=== PATIENT | male | born 1965 | race Caucasian/White ===

== ENCOUNTER → 2024-09-17 07:36 | Outpatient (REF) | payer OTHER, SELFPAY | LOC: MRI 3T 07:36 | PROVIDERS: ATTENDING PHYSICIAN Urology; FAMILY PHYSICIAN Physician Assistant Medical | DX: C61 Malignant neoplasm of prostate (principal) | CPT/HCPCS: 72197; A9575 ==

== ENCOUNTER 2025-05-27 08:08 | Emergency (ER) | payer OTHER, SELFPAY ==
[2025-05-27 08:12] VITALS: BP 130/77
--- NOTE | 2025-05-27 08:46 | EDRN ---
Remy HAN in room w/ pt.
--- NOTE | 2025-05-27 08:47 | ED.GENMED ---
History of Present Illness
General
Chief Complaint: Musculo-Skeletal Complaint
Source: patient
Exam Limitations: none
Time Seen by Provider: 05/27/25 08:35
History of Present Illness
History of Present Illness:
60yoM with a history of hypertension and seizures presenting for evaluation of right foot pain. Patient started to experience a twinge on the top of his right foot yesterday. He was having significant burning pain throughout the night and was
having difficulty sleeping. Pain is worse with weightbearing. He denies any specific injury. 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 He is worried he may have a stress fracture. He took ibuprofen 600mg this morning
with some relief. He denies any paresthesias or calf pain.
Past History
Past History
ED Past Medical History: Other (RA, Gout)
ED Past Surgical History: None
Social History
Tobacco: Non-smoker
Phy Exam
General Physical Exam
General Presentation: well appearing and no apparent distress
General Skin: warm and dry
General Habitus: normal
General Mental: alert
ENT Exam
ENT Exam: normocephalic
Neurological Exam
Neurological Exam: alert
Tomas Coma Scale
Eye Opening: Spontaneous
Verbal Response: Oriented
Motor Response: Obeys Commands
GCS Total Score: 15
Musculoskeletal Exam
Musculoskeletal Exam: other (R foot: Mild swelling noted to dorsum of foot. No wounds or signs of infection. +Tenderness to ball of foot. ROM of ankle and toes intact. No calf tenderness or pitting edema. 2+ DP pulse and sensation intact.)
Skin Exam
Skin Exam: normal color and warm/dry
Psychiatric Exam
Psychiatric Exam: normal mood/affect
Course
Orders/Labs/Results
Orders:
Orders
05/27/25 08:15
Foot, Right 3 View [CR Foot - Right Min 3 Views] Urgent
Comment:
Reason For Exam: pain
05/27/25 08:47
boot [Ortho Boot Right- Treatment] ONCE
Short or tall?: Short
Vital Signs
Initial and Last Documented VS:
Initial Vital Signs
Temp Pulse Resp BP Pulse Ox
98.1 F 78 18 130/77 98
05/27/25 08:12 05/27/25 08:12 05/27/25 08:12 05/27/25 08:12 05/27/25 08:12
Last Documented Vital Signs
Temp Pulse Resp BP Pulse Ox
98.1 F 82 16 128/86 98
05/27/25 08:12 05/27/25 08:51 05/27/25 08:51 05/27/25 08:51 05/27/25 08:51
MDM/Problems Addressed
Differential Diagnosis Includes:
60yoM here with R foot pain since last night. No specific trauma but walks a lot for his job. Mild swelling to foot noted with tenderness. DP pulse is 2+ and extremity is neurovascularly intact. Differential diagnosis includes: stress fracture,
metatarsalgia, Colvin's neuroma, no clinical evidence of infection or DVT
X-rays of foot obtained which are negative for acute osseous abnormalities. Discussed that stress fractures can have negative initial x-rays. Walking boot provided and supportive care discussed. Advised f/u with podiatry. He was discharged in stable
condition.
*Pulse Oximetry
SaO2: 98
Oxygen Mode of Delivery: Room air
Patient hypoxic: no (98%)
*Critical Care Note
Total Time (30-74mins, 75-104mins- exclusive of procedures): Not Applicable
ED Attending Note
-
Portions of this chart may have been created with voice recognition software.� Occasional wrong word or��sound alike� substitutions may have occurred due to the inherent limitations of voice recognition software.
Discharge Plan
Departure
Patient Disposition: Home (Routine Discharge)
Date of Disposition: 05/27/25
Time of Disposition: 08:49
Patient with high blood pressure during this ER visit?: No
Discharge Problem:
Acute pain of right foot
Instructions: Muscle, joint, and bone pain - Discharge instructions
Prescriptions:
No Action
colchicine 0.6 MG tablet
0.6 mg PO Daily Qty: 6 0RF
Rx Instructions:
Take 2 tablets now, then take a third tablet one hour later. Repeat in 3 days if necessary.
Referrals:
Debbie Ji DPM [[facility], Podiatry]
Activity Restrictions/Additional Instructions:
Apply ice to affected area and compress. Take ibuprofen as needed for pain. Use boot while walking.
Please follow-up with podiatry.
Interventions
Interventions:
*Risk Screen - Suicide Last Done: 05/27/25 08:50
*General Assessment Last Done: 05/27/25 08:49
*Neglect/Abuse Screening Last Done: 05/27/25 08:50
*ED- Fall Risk Assessment Last Done: 05/27/25 08:49
*ED COVID-19 Vaccine History Last Done: 05/27/25 08:49
*Nursing Disposition Last Done: 05/27/25 09:08
ED-Musculoskeletal Assessment Last Done: 05/27/25 08:51
Discharge Date and Time
Discharge Date/Time: 05/27/25 09:08
Print Language: LATVIAN
[2025-05-27 08:48] VITALS: BMI 27.1
[2025-05-27 08:51] VITALS: BP 128/86
== END 2025-05-27 09:08 | disposition home or self-care (01) ==
LOC: EMR 08:08
PROVIDERS: EMERGENCY PHYSICIAN Emergency Medicine; FAMILY PHYSICIAN Physician Assistant Medical
DX: M79.671 Pain in right foot (principal); R22.41 Localized swelling, mass and lump, right lower limb; R56.9 Unspecified convulsions; I10 Essential (primary) hypertension; M06.9 Rheumatoid arthritis, unspecified; M10.9 Gout, unspecified
CPT/HCPCS: 99283; 29515; 73630